=== PATIENT | male | born 1990 | race Caucasian/White ===

== ENCOUNTER → 2018-02-11 | Outpatient (CLI) | payer SELFPAY | LOC: M LRY 16:18 | DX: S99.921A Unspecified injury of right foot, initial encounter (principal); X58.XXXA Exposure to other specified factors, initial encounter; Y92.9 Unspecified place or not applicable; Y93.9 Activity, unspecified; Y99.9 Unspecified external cause status | CPT/HCPCS: 73630 ==

== ENCOUNTER → 2019-01-26 | Outpatient (CLI) | payer OTHER ==
--- NOTE | 2019-01-26 13:45 | REP ---
RIGHT HAND SERIES: FOUR VIEWS. HISTORY: Injury. COMPARISON STUDY: November 18, 2012 FINDINGS: Four views of the right hand demonstrate mild, old post-traumatic deformity of the distal end of the 5th metacarpal, consistent with an old boxer's fracture. This was not apparent in 2012. No acute fractures seen. Lateral view shows soft tissue swelling dorsally over the metacarpals. IMPRESSION: Old boxer's fracture distal 5th metacarpal. Diffuse soft tissue swelling dorsally over the metacarpals. No acute fracture is appreciated. Electronically Signed by Prabhu Gama MD 01/26/2019 05:17 P
--- NOTE | 2019-01-26 15:58 | REP ---
Right wrist series: Four views. History: Injury. Findings: Four views of the right wrist demonstrate mild soft tissue swelling dorsally over the metacarpals and carpal bone region. No fracture is seen. No subluxation is noted. Impression: No acute bony abnormality. Dorsal soft tissue swelling. Electronically Signed by Prabhu Gama MD 01/26/2019 01:20 P
== END ==
LOC: M LRY 12:47
PROVIDERS: ATTEND Physician Assistant
DX: S69.91XA Unspecified injury of right wrist, hand and finger(s), initial encounter (principal); Y92.9 Unspecified place or not applicable; Y93.9 Activity, unspecified

== ENCOUNTER 2019-05-12 06:14 | Day surgery (SDC) | payer OTHER ==
[~2019-05-12] VITALS: Ht 185.4 cm; Wt 99.8 kg
[~2019-05-12 06:14] MED LIST: ACET1TAB16 PO; CelecoXIB 400 MG CAP PO ONE; GABAPENTIN 300 MG CAP PO ONE; LR 1,000 ML IV ONE; PERCOCET 5MG/325MG TAB PO ONE; TIZA4TAB4 PO; ceFAZolin SOD 2 GM in IV 1 EA IV ONE
[2019-05-12] MEDS ORDERED: SUGAMMADEX SODIUM 500 MG/5 ML VIAL (BRIDION) As Ordered ONE (06:52)
[2019-05-12] MEDS ORDERED: PROPOFOL 200 MG/20 ML VIAL As Ordered ONE (06:52)
[2019-05-12] MEDS ORDERED: ROCURONIUM BROMIDE 50 MG/5 ML VIAL As Ordered ONE (06:52)
[2019-05-12] MEDS ORDERED: LIDOCAINE 2% INJ 100 MG/5 ML SDV (FOR ANES.) As Ordered ONE (06:52)
[2019-05-12] MEDS ORDERED: fentaNYL 250 MCG/5 ML INJECTION (J3010) As Ordered ONE (06:53)
[2019-05-12] MEDS ORDERED: KETAMINE HCL 200 MG/20 ML VIAL As Ordered ONE (06:53)
[2019-05-12] MEDS ORDERED: ONDANSETRON 4MG/2ML VIAL (J2405) As Ordered ONE (06:53)
[2019-05-12] MEDS ORDERED: dexameTHASONE 4 MG/ML 1ML VIAL (J1100) As Ordered ONE (06:53)
[2019-05-12] MEDS ORDERED: MIDAZOLAM INJ 2 MG/2 ML VIAL (J2250) As Ordered ONE (06:54)
[2019-05-12] MEDS ORDERED: HYDROmorphone HCL 2 MG/ML 1ML VIAL (J1170) As Ordered ONE (06:54)
[2019-05-12] MEDS ORDERED: THROMBIN SOLN 20,000 UNITS KIT As Ordered ONE (06:55)
[2019-05-12] MEDS ORDERED: BUPIVACAINE LIPOSOME/PF 1.3% 20ML VIAL (13.3MG/ML)(EXPAREL)(C9290 PER1MG) As Ordered ONE (06:56)
[2019-05-12] MEDS ORDERED: TRANEXAMIC ACID 100 MG/ML 10ML VIAL As Ordered ONE (06:56)
[2019-05-12] MEDS ORDERED: EPINEPHrine INJ 1 MG/ML 1ML AMP As Ordered ONE (06:56)
[2019-05-12] MEDS ORDERED: BUPIVACAINE/EPIN 0.5% 30 ML VIAL As Ordered ONE (06:56)
[2019-05-12] MEDS ORDERED: BUPIVACAINE HCL 0.25% 10 ML VIAL As Ordered ONE (06:56)
[2019-05-12] MEDS ORDERED: BACITRACIN PWD 50,000 UNITS VIAL As Ordered ONE (06:56)
[2019-05-12] MEDS ORDERED: ACETAMINOPHEN 1000MG 100ML IV BTL (OFIRMEV) (J0131 PER 10MG) As Ordered ONE (08:08)
[2019-05-12] MEDS ORDERED: oxyCODONE 5MG TAB As Ordered ONE (10:43)
[2019-05-12] MEDS: oxyCODONE 5MG TAB PO PRN ×2 (10:44→11:14)
[2019-05-12] MEDS ORDERED: fentaNYL 100 MCG/2 ML INJECTION (J3010) IV PRN (10:45)
[2019-05-12] MEDS ORDERED: METOCLOPRAMIDE INJ 10MG/2ML VIAL (J2765) IV PRN (10:45)
[2019-05-12] MEDS ORDERED: MEPERIDINE INJ 25 MG/ML VIAL (J2175) IV PRN (10:45)
[2019-05-12] MEDS ORDERED: ONDANSETRON 4MG/2ML VIAL (J2405) IV PRN (10:45)
[2019-05-12] MEDS ORDERED: LR 1,000 ML IV SCH ×2 (10:45→11:00)
[2019-05-12] MEDS ORDERED: HYDROMORPHONE HCL 0.5 MG/ 0.5 ML SYRINGE (J1170 PER 1) IV PRN (11:00)
[2019-05-12] MEDS ORDERED: PROMETHAZINE INJ 25 MG/ML VIAL (J2550) IV PRN (11:00)
[2019-05-12] MEDS ORDERED: PERCOCET 5MG/325MG TAB PO PRN ×2 (11:00)
--- NOTE | 2019-05-12 11:31 | REP ---
Single view lumbar spine: 05/12/2019. Indication: Intraoperative localization. Comparison: 10/05/2013. Findings: The distal tip of the localizing instrument is just above the L5/S1 intervertebral disc. Electronically Signed by Chaitanya Rushing DO 05/12/2019 11:23 A
[2019-05-12] MEDS ORDERED: ceFAZolin SOD 2 GM in IV 1 EA IV ONE (14:00)
[2019-05-12 15:21] VITALS: BP 138/81
[2019-05-12 18:07] VITALS: BP 140/85
[2019-05-12] MEDS ORDERED: GABAPENTIN 300 MG CAP PO SCH (21:00)
--- NOTE | 2019-05-13 07:51 | RO ---
DATE OF PROCEDURE: 05/12/2019 PREOPERATIVE DIAGNOSIS: Herniated disc at L4-5 with spinal stenosis centrally and right lower extremity radiculopathy. POSTOPERATIVE DIAGNOSIS: Herniated disc at L4-5 with spinal stenosis centrally and right lower extremity radiculopathy. ADDITIONAL DIAGNOSIS: Congenital lumbar spinal stenosis. PROCEDURE PERFORMED: Right unilateral laminectomy of L4 lamina with decompression of the thecal sac. Subarticular decompression bilaterally. Partial discectomy. SURGEON: Dr. George PETROLOGY TEACHER: HYACINTH Colbert ANESTHESIA: General. ESTIMATED BLOOD LOSS: Less than 100 mL. REPLACED: crystalloid. Complications: None. INDICATIONS: Right lower extremity radicular symptoms going on for nearly a year. The patient has elected for operative intervention. Consent reviewed in detail including darryn discussion of the pathology involved, the procedure proposed, alternatives including doing nothing and risks including not limited to pain, failure, need for more surgery, bleeding blood loss, nerve injury, infection, blood clots and other problems. The patient agrees to proceed. OPERATIVE COURSE: Identified in the holding area, site side verified, brought to the operating room. General anesthesia was administered. The patient was then positioned in the prone position on the Leander frame for exposure of the lumbar spine, knees slightly flexed axillary rolls utilized. Time-out was accomplished, once I janitorial assistant were comfortable with the patient's positioning, sterilely prepped, draped usual fashion. Then the time-out was accomplished, I stood on the patient's right, Mr. Paniagua on the left initially I utilized 3.5 loupe magnification, we later utilized loupe magnification. Next, the incision was outlined with a marking pen infiltrated with quarter Marcaine with epinephrine that was based on palpation iliac crest and an incision was made with a 10 blade developed down through skin subcuticular tissues to the posterior lumbar fascia. Posterior lumbar fascia was reflected off of the spinous process of L5. Dissection continued over the L5 lamina, divot was drilled in the L5 posterior lamina and a cross-table lateral was taken to verify our level. Next, once this was accomplished we developed the incision and the dissection superiorly exposing the L4 lamina. The patient was appreciated to have significant facet arthropathy. Shadow line retractor was installed, Smiley[place]ell was utilized to remove the posterior lamina of L4. The operating microscope was sterilely draped and brought in for additional portions of procedure. I exchanged my loupe magnification, I stood on the right, Mr. Ba on the left, I utilized oculars on the right side of the scope Mr. Ba on the left side of the scope. I utilized a high-speed bur to implement a right unilateral laminotomy of the L4 level and elevated the ligamentum flavum using curettes and removed it using Kerrisons. We swept the thecal sac and traversing nerve root medially to expose the bulging disc which was appreciated to be mostly a hard disc. Annulus was opened, some disc material was removed and the disc was relatively small then we had anticipated based on the MRI and exploration also suggested significant ligamentum flavum hypertrophy and because of this we further decompressed subarticular space of ligamentum flavum and undercut the spinous process of L4 and decompressed the ligamentum flavum in the subarticular space on the contralateral left side. Significant midline and bilateral lateral recess decompression was accomplished. I inspected for bleeding and CSF leaks, none were appreciated. Irrigation was accomplished. TXA was allowed to insurance verification rep the wound for venous bleeding, it was evacuated after a minute. The retractors were then removed, the posterior lumbar fascia was re-approximated with interrupted stitch, myrna fascia with interrupted stitch, deep dermis with interrupted stitch and Prineo dressing was applied. The patient was then able to be moved to the hospital bed extubated and moved to the recovery room in good condition moving all four extremities and reporting relief of his lower extremity pain.
[2019-05-13] MEDS ORDERED: CelecoXIB 400 MG CAP PO ONE (09:00)
== END 2019-05-12 18:30 | disposition home or self-care (01) ==
LOC: M SDC 06:14 → M MS5PR 12:55 → M SDC 18:30
PROVIDERS: ATTEND Orthopaedic Surgery
DX: M51.16 Intervertebral disc disorders with radiculopathy, lumbar region (principal); M48.062 Spinal stenosis, lumbar region with neurogenic claudication; F17.218 Nicotine dependence, cigarettes, with other nicotine-induced disorders
CPT/HCPCS: 36415; 63030; 72100; 86850; 86900; 86901; 88304; C9290; J0131; J0690; J1100; J1170; J2250; J2405; J3010

== ENCOUNTER → 2020-12-11 | Outpatient (CLI) | payer OTHER ==
[~2020-12-11] MED LIST changes: -CelecoXIB 400 MG CAP PO ONE; -GABAPENTIN 300 MG CAP PO ONE; -LR 1,000 ML IV ONE; -PERCOCET 5MG/325MG TAB PO ONE; -ceFAZolin SOD 2 GM in IV 1 EA IV ONE
--- NOTE | 2020-12-11 15:51 | REPVR ---
PROCEDURE INFORMATION: Exam: MR Lumbar Spine Without Contrast Exam date and time: 12/11/2020 1:43 PM Age: 30 years old Clinical indication: Low back pain; Prior surgery; Surgery date: 6+ months; Surgery type: Per PT, l4-5 disc; Additional info: Spinal stenosis R/O herniation TECHNIQUE: Imaging protocol: Multiplanar magnetic resonance images of the lumbar spine without intravenous contrast. COMPARISON: MRI-Spine, L.S. without con 12/12/2013 10:37 AM FINDINGS: Vertebrae: There is straightening of the lumbar spine which could be secondary to positioning or muscle spasm. The lumbar vertebral bodies are normal in height,signal intensity and alignment.No acute fracture or dislocation is seen. Spinal epidural space: There is no evidence of epidural masses or hemorrhage. Spinal cord: The conus medullaris is normal. L1-L2: There is no significant degenerative disc herniation.The spinal canal and neural foramina are patent and without significant stenosis. L2-L3: There is no significant degenerative disc herniation.The spinal canal and neural foramina are patent and without significant stenosis. L3-L4: Mildly reduced in height and T2 signal indicating degeneration. Moderate posterior and left paracentral herniation with inferior migration. This causes severe spinal canal stenosis and marked compression of the thecal sac and cauda equina nerve roots.The facet joints demonstrate moderate degenerative narrowing and sclerosis.Severe left lateral recess stenosis with compression on the left L4 and L5 nerve roots. L4-L5: Mildly reduced in height and T2 signal indicating degeneration. Moderate type 1 degenerative endplate changes. Small diffuse posterior herniation. Moderate facet arthropathy.There is moderate spinal canal stenosis, with an AP canal dimension of 8 mm. There is mild right foraminal stenosis. There is moderate left foraminal stenosis. L5-S1: Moderately reduced in height and T2 signal indicating degeneration. Severe type 1 degenerative endplate changes. Small diffuse posterior herniation. Mild facet arthropathy.There is no evidence of spinal canal narrowing. There is moderate right foraminal stenosis. There is severe left foraminal stenosis. There is compression on the left exiting nerve root. Soft tissues: The prevertebral soft tissues appear normal. IMPRESSION: MRI of the lumbar spine reveals multilevel degenerative spondylitic changes and degenerative disc disease , most significant at L3-L4 level with severe spinal canal stenosis and marked compression of the thecal sac as described above. Neuro surgical consultation is recommended. Electronically signed by: Shimon Steinberg On 12/11/2020 15:50:41 PM
== END ==
LOC: M RAD 13:37
PROVIDERS: ATTEND Physician Assistant
DX: M48.061 Spinal stenosis, lumbar region without neurogenic claudication (principal); M47.816 Spondylosis without myelopathy or radiculopathy, lumbar region; M51.26 Other intervertebral disc displacement, lumbar region

== ENCOUNTER → 2021-01-04 | Outpatient (CLI) | payer OTHER | LOC: M LABSMTC 09:52 | PROVIDERS: ATTEND Orthopaedic Surgery | DX: Z01.812 Encounter for preprocedural laboratory examination (principal); Z20.822 Contact with and (suspected) exposure to COVID-19 ==

== ENCOUNTER → 2025-06-23 | Outpatient (CLI) | payer MEDICAID ==
[~2025-06-23] MED LIST changes: -ACET1TAB16 PO; +ACET300T48 PO; +TIZA10TA PO; -TIZA4TAB4 PO
== END ==
LOC: M OUTALCOH 12:42
PROVIDERS: ATTEND Psychiatry & Neurology Psychiatry
DX: F11.20 Opioid dependence, uncomplicated (principal); F15.20 Other stimulant dependence, uncomplicated; F17.200 Nicotine dependence, unspecified, uncomplicated